=== PATIENT | female | born 1945 | race Caucasian/White ===

== ENCOUNTER 2017-12-01 22:37 | Emergency (ER) | payer OTHER ==
[2017-12-01] MEDS ORDERED: hydrOXYzine HCl 25 MG TAB ONE (23:27)
[2017-12-01] MEDS ORDERED: FAMOTIDINE 20 MG/2 ML VIAL IV ONE (23:27)
[2017-12-01] MEDS ORDERED: DEXAMETHASONE 10 MG/ML VIAL ONE (23:27)
[2017-12-01] MEDS ORDERED: FAMOTIDINE 20 MG TAB ONE (23:28)
[2017-12-02] MEDS ORDERED: LORAZEPAM 1 MG TABLET ONE (00:12)
[2017-12-02] MEDS ORDERED: hydrOXYzine HCl 25 MG TAB ONE (00:13)
[2017-12-02 00:28] LABS: Urine Blood 2+ (NEG); Urine Glucose NEGATIVE (NEG); Urine Protein NEGATIVE (NEG)
--- NOTE | 2017-12-02 01:57 | EDPHYS ---
Physician Documentation [facility] Name: Flori Goldman Age: 72 yrs Sex: Female : 1945 Arrival Date: 12/01/2017 Time: 22:39 Bed 17 Private MD: Leslie Sparks ED Physician Luis Villegas HPI: 12/02 01:59 This 72 yrs old Female presents to ER via Ambulatory with complaints of Rash. snw 01:59 The patient's rash thought to be caused by an unknown cause. The rash can be described snw as erythematous, patchy, urticarial. Onset: The symptoms/episode began/occurred suddenly, yesterday, and became worse and became persistent. Associated signs and symptoms: Pertinent positives: burning sensation. Severity of symptoms: At their worst the symptoms were moderate severe in the emergency department the symptoms are unchanged. Treatment given at home: Benadryl. The patient has not experienced similar symptoms in the past. The patient has been recently seen by a physician: the patient's primary care provider, with different complaint(s), and apparently was diagnosed with UTI, was given a prescription for antibiotics. Pt has been taking Cipro x 5 days (last dose today). Pt broke out in painful (burning/itching) rash yesterday but believed it to be Shingles. Arrives in ED 2nd to pain and severe, unrelenting itching. Historical: - Allergies: 12/01 23:41 PENICILLINS; ea - Immunization history:: Adult Immunizations up to date. - Social history:: Smoking status: Patient/guardian denies using tobacco. - Ebola Screening: : No symptoms or risks identified at this time. ROS: 12/02 00:04 Constitutional: Negative for fever, chills, and weight loss, Eyes: Negative for injury, snw pain, redness, and discharge, ENT: Negative for injury, pain, and discharge, Neck: Negative for injury, pain, and swelling, Cardiovascular: Negative for chest pain, palpitations, and edema, Respiratory: Negative for shortness of breath, cough, wheezing, and pleuritic chest pain, Abdomen/GI: Negative for abdominal pain, nausea, vomiting, diarrhea, and constipation, Back: Negative for injury and pain, : Negative for injury, bleeding, discharge, and swelling, MS/Extremity: Negative for injury and deformity, Neuro: Negative for headache, weakness, numbness, tingling, and seizure. Skin: Positive for rash, pt felt she might have broken out in shingles, just finished cipro for UTI today, pt has erupted in not shingles but hives. Exam: 12/01 23:10 Constitutional: This is a well developed, well nourished patient who is awake, alert, snw and in no acute distress. Head/Face: Normocephalic, atraumatic. Eyes: Pupils equal round and reactive to light, extra-ocular motions intact. Lids and lashes normal. Conjunctiva and sclera are non-icteric and not injected. Cornea within normal limits. Periorbital areas with no swelling, redness, or edema. ENT: Nares patent. No nasal discharge, no septal abnormalities noted. Tympanic membranes are normal and external auditory canals are clear. Oropharynx with no redness, swelling, or masses, exudates, or evidence of obstruction, uvula midline. Mucous membranes moist. Neck: Trachea midline, no thyromegaly or masses palpated, and no cervical lymphadenopathy. Supple, full range of motion without nuchal rigidity, or vertebral point tenderness. No Meningismus. Chest/axilla: Normal chest wall appearance and motion. Nontender with no deformity. No lesions are appreciated. Cardiovascular: Regular rate and rhythm with a normal S1 and S2. No gallops, murmurs, or rubs. Normal PMI, no JVD. No pulse deficits. Respiratory: Lungs have equal breath sounds bilaterally, clear to auscultation and percussion. No rales, rhonchi or wheezes noted. No increased work of breathing, no retractions or nasal flaring. Abdomen/GI: Soft, non-tender, with normal bowel sounds. No distension or tympany. No guarding or rebound. No evidence of tenderness throughout. Back: No spinal tenderness. No costovertebral tenderness. Full range of motion. Female : Normal external genitalia. MS/ Extremity: Pulses equal, no cyanosis. Neurovascular intact. Full, normal range of motion. Neuro: Awake and alert, GCS 15, oriented to person, place, time, and situation. Cranial nerves II-XII grossly intact. Motor strength 5/5 in all extremities. Sensory grossly intact. Cerebellar exam normal. Normal gait. Skin: Appearance: normal except for affected area, rash a moderate rash is noted, urticaria. Vital Signs: 23:10 BP 106 / 69; Pulse 69; Resp 18; Temp 98.7; Pulse Ox 96% on R/A; Weight 90.72 kg; Height ea 5 ft. 6 in. (167.64 cm); Pain 0/10; 12/02 00:19 BP 133 / 67; Pulse 60; Resp 18; Pulse Ox 97% on R/A; ea 01:26 BP 123 / 72; Pulse 60; Resp 18; Pulse Ox 96% on R/A; ea 02:45 BP 131 / 70; Pulse 62; Resp 18; Temp 97.8(O); Pulse Ox 97% on R/A; Pain 0/10; ea 12/01 23:10 Body Mass Index 32.28 (90.72 kg, 167.64 cm) ea MDM: 12/01 23:03 Patient medically screened. snw 12/02 00:04 Data reviewed: vital signs, nurses notes. Data interpreted: Pulse oximetry: on room air snw is 96 %. Interpretation: acceptable. Medication response: atarax, continued hives, continued pruritis. 01:58 Response to treatment: the patient's symptoms have markedly improved after treatment, snw and as a result, I will discharge patient, administer antihistamines, Vistaril, administer steroids, prednisone. 12/01 23:55 Order name: Urine Dipstick--Ancillary (enter results); Complete Time: 00:32 rg2 Administered Medications: 12/01 23:29 Drug: Decadron 8 mg Route: PO; ea 12/02 00:06 Follow up: Response: No adverse reaction ea 12/01 23:29 Drug: Pepcid 20 mg Route: PO; ea 12/02 00:06 Follow up: Response: No adverse reaction ea 12/01 23:30 Drug: Atarax 25 mg Route: PO; ea 12/02 00:06 Follow up: Response: No adverse reaction ea 00:12 Drug: Atarax 25 mg Route: PO; ea 01:00 Follow up: Response: No adverse reaction; Marked relief of symptoms ea 00:12 Drug: Ativan 1 mg Route: PO; ea 01:00 Follow up: Response: No adverse reaction; Marked relief of symptoms ea Disposition: 03:37 Co-signature as Attending Physician, Luis Villegas MD. pkl Disposition: 12/02/17 01:56 Discharged to Home. Impression: Allergy status to drugs, medicaments and biological substances. - Condition is Stable. - Discharge Instructions: Drug Allergy, Hives. - Prescriptions for Vistaril 25 mg Oral capsule - take 1 capsule by ORAL route 3 times per day; 30 capsule. Prednisone 20 mg Oral Tablet - take 2 tablet by ORAL route once daily for 5 days; 10 tablet. - Medication Reconciliation Form, Thank You Letter, Antibiotic Education, Prescription Opioid Use form. - Follow up: Leslie Sparks MD; When: 1 - 2 days; Reason: Recheck today's complaints, Continuance of care, Re-evaluation by your physician. Follow up: Emergency Department; When: As needed; Reason: Worsening of condition. - Notes: No Fluoroquinolones or Penicillins Signatures: Dispatcher [employer] EDMS Luis Villegas MD MD pkl Therrien, Shelly, DIRECTOR MEDICAL WRITING-C DIRECTOR MEDICAL WRITING-Csnw Bridgette James, RN RN ea Corrections: (The following items were deleted from the chart) 02:55 01:56 12/02/2017 01:56 Discharged to Home. Impression: Allergy status to drugs, ea medicaments and biological substances. Condition is Stable. Forms are Medication Reconciliation Form, Thank You Letter, Antibiotic Education, Prescription Opioid Use. Follow up: Leslie Sparks; When: 1 - 2 days; Reason: Recheck today's complaints, Continuance of care, Re-evaluation by your physician. Follow up: Emergency Department; When: As needed; Reason: Worsening of condition. snw
--- NOTE | 2017-12-02 01:57 | ER ---
Nurse's Notes [facility] Name: Flori Goldman Age: 72 yrs Sex: Female : 1945 Arrival Date: 12/01/2017 Time: 22:39 Bed 17 Private MD: Leslie Sparks Diagnosis: Allergy status to drugs, medicaments and biological substances Presentation: 12/01 23:00 Presenting complaint: Patient states: Patient reports she started having a rash all ea over her body, reports she thinks it's shingles. Transition of care: patient was not received from another setting of care. Onset of symptoms was December 01, 2017. Risk Assessment: Do you want to hurt yourself or someone else? Patient reports no desire to harm self or others. Initial Sepsis Screen: Does the patient meet any 2 criteria? No. Patient's initial sepsis screen is negative. Does the patient have a suspected source of infection? No. Patient's initial sepsis screen is negative. Care prior to arrival: None. 23:00 Method Of Arrival: Ambulatory ea 23:00 Acuity: SLADE 3 ea Triage Assessment: 23:00 General: Appears uncomfortable, Behavior is calm, cooperative, appropriate for age. ea Pain: Denies pain. EENT: Reports "I just feel so itchy". Neuro: Level of Consciousness is awake, alert, obeys commands, Oriented to person, place, time, situation. Cardiovascular: Heart tones S1 S2 present Patient's skin is warm and dry. Respiratory: Airway is patent Respiratory effort is even, unlabored, Respiratory pattern is regular, symmetrical, Breath sounds are clear bilaterally. GI: Bowel sounds present X 4 quads. Derm: Rash noted that is urticaria, on buttocks, chest, abdomen, pelvis, right arm, left arm, right leg and left leg. Historical: - Allergies: 23:41 PENICILLINS; ea - Immunization history:: Adult Immunizations up to date. - Social history:: Smoking status: Patient/guardian denies using tobacco. - Ebola Screening: : No symptoms or risks identified at this time. Screenin:42 Abuse screen: Denies threats or abuse. Nutritional screening: No deficits noted. ea Tuberculosis screening: No symptoms or risk factors identified. Fall Risk None identified. Assessment: 12/02 00:12 Reassessment: Patient and/or family updated on plan of care and expected duration. Pain ea level reassessed. Patient is alert, oriented x 3, equal unlabored respirations, skin warm/dry/pink. 01:55 Reassessment: Patient and/or family updated on plan of care and expected duration. Pain ea level reassessed. Patient is alert, oriented x 3, equal unlabored respirations, skin warm/dry/pink. 02:50 Reassessment: Patient and/or family updated on plan of care and expected duration. Pain ea level reassessed. Patient is alert, oriented x 3, equal unlabored respirations, skin warm/dry/pink. Discharge instructions given to patient and , both verbalized the understanding of instruction. Patient states feeling better. Patient states symptoms have improved. Vital Signs: 12/01 23:10 BP 106 / 69; Pulse 69; Resp 18; Temp 98.7; Pulse Ox 96% on R/A; Weight 90.72 kg; Height ea 5 ft. 6 in. (167.64 cm); Pain 0/10; 12/02 00:19 BP 133 / 67; Pulse 60; Resp 18; Pulse Ox 97% on R/A; ea 01:26 BP 123 / 72; Pulse 60; Resp 18; Pulse Ox 96% on R/A; ea 02:45 BP 131 / 70; Pulse 62; Resp 18; Temp 97.8(O); Pulse Ox 97% on R/A; Pain 0/10; ea 12/01 23:10 Body Mass Index 32.28 (90.72 kg, 167.64 cm) ea ED Course: 12/01 22:39 Patient arrived in ED. am2 22:40 Leslie Sparks MD is Private Physician. am2 22:49 [facility] snw 22:49 Luis Villegas MD is Attending Physician. snw 23:00 Arm band placed on right wrist. Patient placed in an exam room, on a stretcher, on ea pulse oximetry. 23:19 Bridgette James, ARASELI is Primary Nurse. ea 23:20 Patient has correct armband on for positive identification. Bed in low position. Call ea light in reach. 23:31 Triage completed. ea 12/02 01:55 Leslie Sparks MD is Referral Physician. snw 02:50 No provider procedures requiring assistance completed. Patient did not have IV access ea during this emergency room visit. Administered Medications: 12/01 23:29 Drug: Decadron 8 mg Route: PO; ea 12/02 00:06 Follow up: Response: No adverse reaction ea 12/01 23:29 Drug: Pepcid 20 mg Route: PO; ea 12/02 00:06 Follow up: Response: No adverse reaction ea 12/01 23:30 Drug: Atarax 25 mg Route: PO; ea 12/02 00:06 Follow up: Response: No adverse reaction ea 00:12 Drug: Atarax 25 mg Route: PO; ea 01:00 Follow up: Response: No adverse reaction; Marked relief of symptoms ea 00:12 Drug: Ativan 1 mg Route: PO; ea 01:00 Follow up: Response: No adverse reaction; Marked relief of symptoms ea Outcome: 01:56 Discharge ordered by . komal 02:50 Discharged to home via wheelchair, with significant other. ea 02:50 Condition: improved 02:50 Discharge instructions given to patient, Instructed on discharge instructions, follow up and referral plans. medication usage, Demonstrated understanding of instructions, follow-up care, medications, Prescriptions given X 2. 02:55 Patient left the ED. ea Signatures: Darby Hopper, DOUGHNUT ICER-C DOUGHNUT ICER-Csnw Lisy Lopez Elena, RN RN hsane
== END 2017-12-02 02:55 | disposition home or self-care (01) ==
LOC: ER 22:37
DX: L27.0 Generalized skin eruption due to drugs and medicaments taken internally (principal); T50.905A Adverse effect of unspecified drugs, medicaments and biological substances, initial encounter; Y92.019 Unspecified place in single-family (private) house as the place of occurrence of the external cause; Z88.0 Allergy status to penicillin
CPT/HCPCS: 81003; J1100; 99283

== ENCOUNTER 2020-06-05 12:22 | Emergency (ER) | payer OTHER ==
--- OUTSIDE RECORDS SUMMARY | 2020-06-05 12:24 | XMS REPORT | Continuity of Care Document ---
:1945 Author Organization [facility] t Address [address] [place] [address] Care Team Providers Name Role Phone DR CYNDIE Attending Clinician Unavailable Doctor Unassigned, Name Attending Clinician Unavailable Damián RIGGINS Attending Clinician DR CYNDIE Admitting Clinician Unavailable Payers Payer Name Policy Type Policy Number Effective Date Expiration Date S ource Problems This patient has no known problems. Allergies, Adverse Reactions, Alerts This patient has no known allergies or adverse reactions. Medications This patient has no known medications. Procedures This patient has no known procedures. Encounters Start End Encounter Admission Attending Care Care Encounter Source Date/Time Date/Time Type Type Clinicians Facility Department ID 2019-12-28 2020-01-12 Inpatient E JOSE [facility] [id number] 22:44:00 17:00:00 [facility] 2019-12-28 2019-12-28 Orders Doctor RINALDI [id number] 00:00:00 00:00:00 Only UnassignedADALBERTO [id number] [facility] [id number] [id number] [id number] 2019-12-18 2019-12-18 Orders Doctor RINALDI [id number] 00:00:00 00:00:00 Only Unassigned, ADALBERTO [id number] [facility] [id number] [id number] [id number] 2019-12-09 2019-12-09 Orders Doctor NIMCO 1.2.840.114 [id number] 00:00:00 00:00:00 Only Unassigned, ADALBERTO [id number] [facility] 4.2.7.2.686 [id number] [id number] 2019-11-24 2019-11-24 Orders Doctor NIMCO [id number] 00:00:00 00:00:00 Only Unassigned, ADALBERTO [id number] [facility] 4.2.7.2.686 [id number] [id number] 2019-10-14 2019-10-14 Orders Doctor NIMCO [place]2.840.114 [id number] 00:00:00 00:00:00 Only Unassigned, ADALBERTO [id number] [facility] [id number] [id number] [id number] 2019-09-29 2019-09-29 Orders Doctor RINALDI 1.2.840.114 [id number] 00:00:00 00:00:00 Only Unassigned, ADALBERTO [id number] [facility] [id number] [id number] [id number] 2019-08-17 2019-08-17 Orders Doctor RINALDI 1.2.840.114 [id number] 00:00:00 00:00:00 Only Unassigned, ADALBERTO 350.1.13.10 [facility] 4.2.7.2.686 [id number] [id number] 2019-07-23 2019-07-23 Orders Doctor NIMCO [place].2.840.114 [id number] 00:00:00 00:00:00 Only Unassigned, ADALBERTO 350.1.13.10 [facility] 4.2.7.2.686 [id number] [id number] 2019-06-05 2019-06-30 [facility] WILLIAM Steel [id number] 08:48:52 08:40:20 Visit [facility] [id number] CARE 4.2.7.2.686 [place] [id number] Results Test Description Test Time Test Comments Results Result Comments Source SARS-CoV (RAPID ANTIGEN) 2020-01-11 17:36:00 Test Item Value Reference Range Interpretation Comme nts SARS-CoV (ANTIGEN) (test code = NEGATIVE NEGATIVE COVAG) COVID AG (test code = COVAGC) This test has been marketed under the FDA Emergency Use Authorization (EUA) to meet challenges of the COVID-19 pandemic. The validation standards normally enforced by the FDA and the [employer] of the [employer] (CAP) are more stringent than those required for this test. Therefore, the result should be interpreted with caution and close attention to other clinical and epidemiological data URINALYSIS WITH [id number] 19:20:00 Test Item Value Reference Range Interpretation Comments COLOR (test code = COLU) YELLOW YELLOW CLARITY (test code = CLA) CLEAR CLEAR GLUCOSE UR (test code = UA GLUCOSE) NEGATIVE NEGATIVE BILI UR (test code = BILE) NEGATIVE NEGATIVE KETONES UR (test code = HELIO) NEGATIVE NEGATIVE SP GRAVITY (test code = SPGR) 1.029 1.005-1.030 PH UR (test code = PH) 6.0 4.5-8.0 PROTEIN UR (test code = PU) NEGATIVE NEGATIVE UROBIL UR (test code = UROQ) 0.2 EU/dL 0.2-1.0 NITRITE UR (test code = NITRITE) NEGATIVE NEGATIVE BLOOD UR (test code = UA BLOOD) NEGATIVE NEGATIVE LEUK ES UR (test code = LEUK) TRACE NEGATIVE A WBC UR (test code = UWBC) 6 /HPF 0-5 H RBC UR (test code = URBC) 1 /HPF 0-2 EPITH UR (test code = UEPC) FEW /LPF FEW BACTERIA UR (test code = UBACT) NONE /HPF NONE CAST UR (test code = CAST) /LPF NONE CRYSTAL UR (test code = CRYU) / LPF NONE MUCUS UR (test code = MUC) / HPF NONE AMORPH UR (test code = BRAYDON) / HPF NONE TRICH UR (test code = UTRICH) /HPF NONE YEAST UR (test code = UY) /HPF NONE SPERM UR (test code = USPERM) /HPF NONE URINE [id number] 11:31:00 Test Item Value Reference Range Interpretation Comments Isolate 1 (test code = ISO1) Escherichia coli A ampicillin (test code = am) ug/mL R piperacillin/tazobactam ug/mL S (test code = tzp) cefazolin (test code = cz) ug/mL S ceftazidime (test code = ug/mL S arpan) ceftriaxone1 (test code = ug/mL S ctr) cefepime (test code = fep) ug/mL S aztreonam (test code = azm) ug/mL S ertapenem (test code = etp) ug/mL S meropenem (test code = mem) ug/mL S gentamicin (test code = gm) ug/mL S tobramycin (test code = tob) ug/mL S levofloxacin (test code = ug/mL S lev) nitrofurantoin (test code = ug/mL S ftn) trimethoprim/sulfamethoxazol ug/mL R e (test code = sxt) [id number] 01:38:00 Test Item Value Reference Range Interpretation Comments Hb A1C % (test code 5.4 % 3.8-6.4 = HBA) A1C % (test code = HbA1c (% ) A1C) Reference Range Normal <5.7 Prediabetes 5.7-6.4 Diabetic >=6.5 B12 [id number] 00:50:00 Test Item Value Reference Range Interpretation Comments VIT B12 (test code = A60) 750.0 pg/mL 180.0-914.0 [id number] 00:50:00 Test Item Value Reference Range Interpretation Comments FOLATE (test code = A75) 14.2 ng/mL 3.1-17.5 [id number] 00:22:00 Test Item Value Reference Range Interpretation Comments MAGNESIUM (test code = 48A) 2.2 mg/dL 1.8-2.4 THYROID PANEL/SCREEN (TSH)2019-12-28 22:29:00 Test Item Value Reference Range Interpretation Comments TSH (test code = A57) 0.514 uIU/mL 0.358-3.740 LIPID [id number] 22:25:00 Test Item Value Reference Range Interpretation Comments CHOLESTROL (test code = 44A) 214 mg/dL 140-200 H TRIGLYCERI (test code = 42B) 97 mg/dL <=149 HDL (test code = 83D) 63.0 mg/dL 40.0-60.0 H LDL (test code = 34B) 129 mg/dL <=99 H CHL/HDL (test code = CHR) 3.4 0.0-3.4 [id number] 22:25:00 Test Item Value Reference Range Interpretation Comments PREALBUMIN (test code = 08E) 24 mg/dL 18-38 [id number] 22:23:00 Test Item Value Reference Range Interpretation Comments FOLATE (test code = A75) 14.0 ng/mL 3.1-17.5 [id number] 22:06:00 Test Item Value Reference Range Interpretation Comments MAGNESIUM (test code = 48A) 2.3 mg/dL 1.8-2.4 SARS-CoV (RAPID ANTIGEN)2019-12-28 21:08:00 Test Item Value Reference Range Interpretation Comments SARS-CoV (ANTIGEN) NEGATIVE NEGATIVE (test code = COVAG) COVID AG (test This test has been code = COVAGC) marketed under the FDA Emergency Use Authorization (EUA) to meet challenges of the COVID-19 pandemic. The validation standards normally enforced by the FDA and the [employer] of the [place] [employer] (CAP) are more stringent than those required for this test. Therefore, the result should be interpreted with caution and close attention to other clinical and epidemiological data [id number] 21:06:00 Test Item Value Reference Range Interpretation Comments FERRITIN (test code = A19) 55.8 ng/mL 8.0-252.0 URINALYSIS WITH [id number] 21:01:00 Test Item Value Reference Range Interpretation Comments COLOR (test code = COLU) YELLOW YELLOW CLARITY (test code = CLA) CLOUDY CLEAR A GLUCOSE UR (test code = UA GLUCOSE) NEGATIVE NEGATIVE BILI UR (test code = BILE) NEGATIVE NEGATIVE KETONES UR (test code = HELIO) NEGATIVE NEGATIVE SP GRAVITY (test code = SPGR) 1.013 1.005-1.030 PH UR (test code = PH) 7.0 4.5-8.0 PROTEIN UR (test code = PU) NEGATIVE NEGATIVE UROBIL UR (test code = UROQ) 1.0 EU/dL 0.2-1.0 NITRITE UR (test code = NITRITE) POSITIVE NEGATIVE A BLOOD UR (test code = UA BLOOD) 1+ NEGATIVE A LEUK ES UR (test code = LEUK) 3+ NEGATIVE A WBC UR (test code = UWBC) 40 /HPF 0-5 H RBC UR (test code = URBC) 6 /HPF 0-2 H EPITH UR (test code = UEPC) FEW /LPF FEW BACTERIA UR (test code = UBACT) MANY /HPF NONE A CAST UR (test code = CAST) /LPF NONE CRYSTAL UR (test code = CRYU) / LPF NONE MUCUS UR (test code = MUC) / HPF NONE AMORPH UR (test code = BRAYDON) / HPF NONE TRICH UR (test code = UTRICH) /HPF NONE YEAST UR (test code = UY) /HPF NONE SPERM UR (test code = USPERM) /HPF NONE C-REACTIVE PROTEIN [id number] 20:56:00 Test Item Value Reference Range Interpretation Comments CRP QUANT (test code <2.9 mg/L 0.0-2.9 = CRPQ) Method Change (test Please note the code = METHOD) change in Method and the reference range AMMONIA [id number] 20:51:00 Test Item Value Reference Range Interpretation Comments AMMONIA (test code = 54A) 23 umol/L 11-32 LDH-LACTIC [id number] 20:50:00 Test Item Value Reference Range Interpretation Comments LDH (test code = 33A) 190 IU/L 84-246 CARDIAC [id number] 20:49:00 Test Item Value Reference Range Interpretation Comments TROPONIN I (test code = A84) <0.015 ng/mL 0.000-0.045 COMPREHENSIVE METABOLIC [id number] 20:48:00 Test Item Value Reference Range Interpretation Comments GLUCOSE (test code = 102 mg/dL 75-100 H 06D) SODIUM (test code = 137 mmol/L 136-145 01A) POTASSIUM (test code = 3.7 mmol/L 3.6-5.1 01B) CHLORIDE (test code = 105 mmol/L 98-107 04A) CO2 (test code = 02A) 26 mmol/L 22-32 ANION GAP (test code = 9.7 mmol/L ANG) BUN (test code = 05D) 15 mg/dL 7-18 CREATININE (test code 0.8 mg/dL 0.4-1.1 = 03E) GFR (test code = GFR) 74 mL/min/1.73m\S\2 >=90 L GFR 85 mL/min/1.73m\S\2 >=90 L (test code = GFRAA) EGFR (test code = eGFR BY CKD-EPI EGFR) CALCULATION IS NOT RECOMMENDED FOR PATIENTS UNDER 18 YEARS OF AGE. BUN/CREA (test code = 19 12-20 BCR) CALCIUM (test code = 9.2 mg/dL 8.3-9.5 09D) BILI TOTAL (test code 0.6 mg/dL 0.2-1.0 = 11A) PROTEIN (test code = 7.5 g/dL 6.4-8.2 07D) ALBUMIN (test code = 4.5 g/dL 3.5-4.8 08D) GLOBULIN (test code = 3.0 g/dL 1.5-3.8 GLB) ALB/GLOB (test code = 1.5 1.0-2.6 AGRR) ALK PHOS (test code = 66 IU/L 42-121 35A) AST (test code = 30A) 14 IU/L <=42 ALT (test code = 31A) 16 IU/L <=78 [id number] 20:48:00 Test Item Value Reference Range Interpretation Comments ACETAMINPH (test code = 94M) <2.0 ug/mL 10.0-30.0 L ALCOHOL BLOOD (ETOH)2019-12-28 20:45:00 Test Item Value Reference Range Interpretation Comments ETOH (test code = HALC) ETHANOL The result is to be used only for medical purposes ALCOHOL (test code = <10 mg/dL <=10 56A) PRO TIME AND [id number] 20:44:00 Test Item Value Reference Range Interpretation Comments PT (test code = 15.1 s 9.8-13.6 H TT) INR (test code = 1.3 INR) INRH (test code = SUGGESTED INRH) THERAPEUTIC RANGE FOR INR: 2.5 - 3.5 For Patients with Prosthetic Valves or Patients with recurrent Thromboembolic Events 2.0 - 3.0 For Most Other Applications PTT (test code = 34.9 s 20.2-38.0 PTT) PTTH (test code = To monitor the PTTH) effectiveness of heparin, we offer the Anti-Xa (Heparin Assay). It can be used for either unfractionated or LMW Heparin. Order Code is ANTI-XA [id number] 20:43:00 Test Item Value Reference Range Interpretation Comments SALICYLATE (test code = 94B) <1.7 mg/dL 2.8-20.0 L DRUGS OF [id number] 20:41:00 Test Item Value Reference Range Interpretation Comments DRUG SCRN (test code URINE DRUG SCREEN = HDOA) This is an unconfirmed screening result and should not be used for non-medical purposes CANNABINOD (test code Negative NEGATIVE = 88C) AMPHETAMINE (test Negative NEGATIVE code = 84A) BENZODIAZP (test code Negative NEGATIVE = 86A) BARBITURAT (test code Negative NEGATIVE = 85A) OPIATES (test code = Negative NEGATIVE 92B) COCAINE (test code = Negative NEGATIVE 87A) PHENCYCLID (test code Negative NEGATIVE = 66A) METHADONE (test code Negative NEGATIVE = 64A) DOAH (test code = DOAH.) *URINE DRUG SCREEN Cut-off values are as follows: Cannabinoids 50 ng/mL Cocaine 300 ng/mL Amphetamines 1000 ng/mL Phencyclidine 25 ng/mL Benzodiazepines 200 ng.mL Methadone 300 ng/mL Barbiturates 200 ng/mL Opiates 2000 ng/mL CBC (INCLUDES AUTOMATED DIFFERENTIAL)2019-12-28 20:34:00 Test Item Value Reference Range Interpretation Comments WBC (test code = WBC) 10.4 10\S\3/uL 4.5-11.0 RBC (test code = RBC) 4.92 10\S\6/uL 3.80-5.80 HGB (test code = HBG) 13.9 g/dL 12.0-15.5 HCT (test code = HCT) 42.4 % 35.0-44.0 MCV (test code = MCV) 86.2 fL 81.0-99.0 MCH (test code = MCH) 28.3 pg 27.0-31.0 MCHC (test code = MCHC) 32.8 g/dL 32.0-36.0 RDW (test code = RDW) 13.9 % 11.5-14.5 PLT (test code = PLT) 462 10\S\3/uL 130-400 H MPV (test code = MPV) 9.0 fL 9.4-12.4 L NEUTROP # (test code = NE#) 6.0 10\S\3/uL 1.6-8.0 LYMPH # (test code = LY#) 2.8 10\S\3/uL 1.1-3.5 MONOCYTE # (test code = MO#) 0.8 10\S\3/uL 0.0-1.1 EOSINOPH # (test code = EO#) 0.6 10\S\3/uL 0.0-0.7 BASOPHIL # (test code = BA#) 0.1 10\S\3/uL 0.0-0.3 IG # (test code = IG#) 0.03 10\S\3/uL 0.00-0.06 NRBC # (test code = NRBC#) 0.00 10\S\3/uL 0.00-0.01 NEUTROPH % (test code = NE%) 57.7 % 35.0-73.0 LYMPH % (test code = LY%) 27.2 % 20.0-55.0 MONO % (test code = MO%) 8.1 % 2.5-10.0 EOSINOPH % (test code = EO%) 5.7 % 0.0-5.0 H BASOPHIL % (test code = BA%) 1.0 % 0.0-2.0 IG % (test code = IG%) 0.3 % 0.0-0.8 NRBC% (test code = NRBC%) 0.0 % 0.0-0.2 MANDIFF (test code = MDIFF) NO
[2020-06-05] MEDS ORDERED: LORazepam 2 MG/ML VIAL ONE ×2 (13:07→14:32)
[2020-06-05 13:10] LABS: Urine Blood NEGATIVE (NEG); Urine Glucose NEGATIVE (NEG); Urine Protein TRACE (NEG); Urine Specific Gravity 1.025 (1.005-1.030)
[2020-06-05 13:10] LABS: Absolute Lymphocytes (CBC) 1.8 K/uL (0.7-4.9); Hematocrit 38.5 % (36.0-45.0); Lymphocytes % 20.7 % (15.3-44.8); MPV 7.9 fL (7.6-11.3); RBC Red Blood Cell Count 4.57 M/uL (3.86-4.86)
[2020-06-05 13:22] LABS: BUN Blood Urea Nitrogen 17 mg/dL (7-18); Bicarbonate 29 mmol/L (21-32); Glucose Level 110 mg/dL (74-106); Potassium 3.1 mmol/L (3.5-5.1); Sodium Level 143 mmol/L (136-145)
--- NOTE | 2020-06-05 13:42 | RAD REPORT ---
EXAM DESCRIPTION: CT - Head Brain Wo Cont - 06/05/2020 1:37 pm CLINICAL HISTORY: facial/head trauma, altered Trauma, head injury COMPARISON: No comparisons TECHNIQUE: All CT scans are performed using dose optimization technique as appropriate and may inclu de automated exposure control or mA/KV adjustment according to patient size. FINDINGS: No intracranial hemorrhage, hydrocephalus or extra-axial fluid collection.Moderate general ized brain atrophy is present with moderate periventricular and deep white matter chronic microvascul ar ischemic changes.No areas of brain edema or evidence of midline shift. The paranasal sinuses and mastoids are clear. The calvarium is intact. Small right frontal scalp jaret ebony. IMPRESSION: No acute intracranial abnormality.
[2020-06-05 13:49] LABS: Urine Bacteria <20 /HPF (<20); Urine Mucus LIGHT /HPF (NONE SEEN); Urine RBC NONE SEEN /HPF (NONE SEEN)
[2020-06-05 13:50] LABS: Calcium Oxalate Crystals- Ur FEW (NONE SEEN); Urine Amorphous Sediment 3+ /HPF (NONE SEEN)
--- NOTE | 2020-06-05 14:09 | ER ---
Nurse's Notes [facility] Name: Flori Goldman Age: 75 yrs Sex: Female : 1945 Arrival Date: 06/05/2020 Time: 12:28 Bed 15 Private MD: Diagnosis: Dementia in other diseases classified elsewhere;Restlessness and agitation Presentation: 06/05 12:36 Chief complaint: EMS states: altered mental status x unknown days. falls x unknown zb days. patient aox1. high anxiety. Coronavirus screen: At this time, the client does not indicate any symptoms associated with coronavirus-19. Ebola Screen: No symptoms or risks identified at this time. Initial Sepsis Screen: Does the patient meet any 2 criteria? Altered Mental Status. No. Patient's initial sepsis screen is negative. Does the patient have a suspected source of infection? No. Patient's initial sepsis screen is negative. Risk Assessment: Do you want to hurt yourself or someone else? Patient reports no desire to harm self or others. Onset of symptoms was June 04, 2020. 12:36 Acuity: SLADE 3 zb 12:36 Method Of Arrival: EMS: [facility] zb Triage Assessment: 12:57 General: Appears uncomfortable, slender, Behavior is agitated, anxious. Pain: Complains zb of pain in patient states generalized. Unable to use pain scale. Patient is disoriented. EENT: No signs and/or symptoms were reported regarding the EENT system. Neuro: Level of Consciousness is awake, alert, Oriented to person. Cardiovascular: Capillary refill < 3 seconds Patient's skin is warm and dry. Respiratory: Airway is patent Respiratory effort is even, unlabored, Respiratory pattern is regular, symmetrical. GI: Abdomen is flat, non-distended. : Urine is cloudy. Derm: Skin is fragile, is thin, Skin is dry, Skin is normal, Skin temperature is warm Bruising that is green, yellow, on right eye. Musculoskeletal: Range of motion: intact in all extremities. Historical: - Allergies: 12:57 PENICILLINS; zb 12:57 Cipro; zb 12:57 fluoroquinolones; zb - Home Meds: 12:57 lisinopril 10 mg Oral tab 1 tab once daily [Active]; lamotrigine 200 mg oral tab 1 tab zb once daily [Active]; duloxetine 60 mg oral cpDR 1 cap once daily [Active]; donepezil 10 mg oral tab 1 tab once daily [Active]; metformin 500 mg Oral TG24 2 tabs 2 times per day [Active]; mirtazapine 30 mg Oral tab 1 tab once daily [Active]; omeprazole 20 mg Oral TbEC [Active]; tramadol 50 mg Oral tab 1 tab 12 hours [Active]; - PMHx: 12:57 Dementia; Diabetes - NIDDM; Alzheimers; GERD; Hypertension; zb - PSHx: 12:57 Unable to obtain; zb - Immunization history:: Adult Immunizations up to date. - Social history:: Smoking status: unknown. - Family history:: not pertinent. - Hospitalizations: : No recent hospitalization is reported. Screenin:33 Abuse screen: Denies threats or abuse. Nutritional screening: On. Tuberculosis tw2 screening: No symptoms or risk factors identified. Fall Risk Secondary diagnosis (15 points) dementia, impaired mobility. Assessment: 12:28 General: Appears slender, Behavior is anxious, fussy, restless. Neuro: Level of tw2 Consciousness is awake, alert, Oriented to person. Cardiovascular: Patient's skin is warm and dry. Respiratory: Airway is patent Respiratory effort is even, unlabored, Respiratory pattern is regular, symmetrical. GI: No signs and/or symptoms were reported involving the gastrointestinal system. Abdomen is flat. : No signs and/or symptoms were reported regarding the genitourinary system. EENT: No signs and/or symptoms were reported regarding the EENT system. Derm: No signs and/or symptoms reported regarding the dermatologic system. Musculoskeletal: Range of motion: intact in all extremities. 13:04 Reassessment: pt agitated and has legs straight up in the air, pt pulling at covers and tw2 cords, grabbing bedrails, provider notified, medicated as ordered. 13:30 Reassessment: Patient appears in no apparent distress at this time. Patient and/or tw2 family updated on plan of care and expected duration. Pain level reassessed. 14:20 Reassessment: pt agitated and attempted to pull at monitoring cords and move to the end tw2 of the bed at this time, provider notified. 14:30 Reassessment: Patient appears in no apparent distress at this time. Patient and/or tw2 family updated on plan of care and expected duration. Pain level reassessed. 15:18 Reassessment: spoke with Caron at [facility] to let her know information has been sent tw2 over an hour ago, she states her DON has not informed her that the pt is cleared to return to the facility, spoke to the DON for [facility], she states she is at the store and has not had time to look over the clinical paperwork and as soon as she can she will arrange transportation back to their facility. 16:40 Reassessment: Patient appears in no apparent distress at this time. Patient and/or tw2 family updated on plan of care and expected duration. Pain level reassessed. pt has urinated in brief, soiled linens, pt cleaned, changed and new linens placed on bed at this time. 17:40 Reassessment: Patient appears in no apparent distress at this time. Patient and/or tw2 family updated on plan of care and expected duration. Pain level reassessed. 18:18 Reassessment: Spoke with Gerri at [facility], [facility] en route, ETA 30 iw minutes from now. 18:41 Reassessment: Patient appears in no apparent distress at this time. Patient and/or tw2 family updated on plan of care and expected duration. Pain level reassessed. Vital Signs: 12:36 BP 136 / 96; Pulse 97; Resp 16; Temp 98.2; Pulse Ox 100% on R/A; Weight 58.97 kg; zb Height 5 ft. 5 in. (167 cm); Pain 0/10; 15:23 BP 128 / 89; Pulse 82; Resp 17; Pulse Ox 99% on R/A; tw2 16:30 BP 132 / 88; Pulse 84; Resp 17; Pulse Ox 99% on R/A; tw2 17:30 BP 129 / 82; Pulse 84; Resp 19; Pulse Ox 99% on R/A; tw2 18:00 BP 149 / 94; Pulse 67; Resp 17; Pulse Ox 99% on R/A; tw2 12:36 Body Mass Index 21.14 (58.97 kg, 167 cm) zb ED Course: 12:28 Patient arrived in ED. rn 12:28 Stevan Doll MD is Attending Physician. rn 12:28 Bed in low position. Call light in reach. Side rails up X2. Pulse ox on. NIBP on. Warm tw2 blanket given. 12:30 Lupe Barrett RN is Primary Nurse. tw2 12:42 Triage completed. zb 12:55 Straight cath inserted, using sterile technique, 18 Fr. Specimen obtained. Returned tw2 foul smelling urine, ARASELI Martínez and Carmita Rubi served as women's swim coach and help, pt not wanting to lay back. Inserted saline lock: 22 gauge in right antecubital area, using aseptic technique. Blood collected. 12:57 Radiology exam delayed due to pt ams and unable to lay down or still at this time. mw3 nurse and provider notified. 13:04 Urine Culture Sent. tw2 13:11 Arm band placed on. tw2 13:36 CT Head Brain wo Cont In Process Unspecified. EDMS 14:22 Awaiting transportation. tw2 15:16 No provider procedures requiring assistance completed. tw2 16:00 Diet: Patient given water. 5 16:46 Awaiting transportation. tw2 18:00 Diet: ENSURE. 5 18:43 IV discontinued, intact, bleeding controlled, No redness/swelling at site. Pressure tw2 dressing applied. Administered Medications: 12:55 Drug: Ativan 0.5 mg Route: IVP; Site: right forearm; tw2 13:05 Follow up: Response: No adverse reaction; No change in condition tw2 13:04 Drug: Ativan 0.5 mg Route: IVP; Site: right forearm; tw2 13:15 Follow up: Response: No adverse reaction; Marked relief of symptoms; Anxiety decreased tw2 14:20 Drug: Ativan 0.5 mg Route: IVP; Site: right forearm; zb 15:22 Follow up: Response: No adverse reaction; Marked relief of symptoms; Anxiety decreased tw2 Outcome: 14:08 Discharge ordered by . rn 18:[address] tw2 18:43 Condition: stable 18:43 Discharge instructions given to patient, Instructed on discharge instructions, follow up and referral plans. Demonstrated understanding of instructions, follow-up care. 18:44 Patient left the ED. tw2 Signatures: Dispatcher [employer] Taylor Seo RN RN Stevan Doll MD MD rn Wise, Tara, RN RN 2 Sofya Zayas [facility] Maria Teresa Adler 3 Zuleima Gutierrez, RN RN zb Corrections: (The following items were deleted from the chart) 18:00 16:00 Diet: ENSURE. mh5 mh5
--- NOTE | 2020-06-05 14:09 | EDPHYS ---
Physician Documentation [facility] Name: Flori Goldman Age: 75 yrs Sex: Female : 1945 Arrival Date: 06/05/2020 Time: 12:28 Bed 15 Private MD: ED Physician Stevan Doll HPI: 06/05 12:42 This 75 yrs old Female presents to ER via Unassigned with complaints of rn agitation and restlessness. 12:42 The patient presents with agitation. Onset: The symptoms/episode began/occurred at an rn unknown time. Possible causes: unknown. Current symptoms: In the emergency department the patient's symptoms are unchanged from the initial presentation. The patient has experienced similar episodes in the past. The patient has not recently seen a physician. Per residential, has severe dementia, in locked unit, called 911 for increased agitation and not doing what she is told, EMS reports had to search for patient as nursing lost her. Patient denies any problems, but very restless and requires constant redirection. . Historical: - Allergies: 12:57 PENICILLINS; zb 12:57 Cipro; zb 12:57 fluoroquinolones; zb - Home Meds: 12:57 lisinopril 10 mg Oral tab 1 tab once daily [Active]; lamotrigine 200 mg oral tab 1 tab zb once daily [Active]; duloxetine 60 mg oral cpDR 1 cap once daily [Active]; donepezil 10 mg oral tab 1 tab once daily [Active]; metformin 500 mg Oral TG24 2 tabs 2 times per day [Active]; mirtazapine 30 mg Oral tab 1 tab once daily [Active]; omeprazole 20 mg Oral TbEC [Active]; tramadol 50 mg Oral tab 1 tab 12 hours [Active]; - PMHx: 12:57 Dementia; Diabetes - NIDDM; Alzheimers; GERD; Hypertension; zb - PSHx: 12:57 Unable to obtain; zb - Immunization history:: Adult Immunizations up to date. - Social history:: Smoking status: unknown. - Family history:: not pertinent. - Hospitalizations: : No recent hospitalization is reported. ROS: 12:42 Constitutional: Negative for fever, chills, and weight loss, Eyes: Negative for injury, rn pain, redness, and discharge, Neck: Negative for injury, pain, and swelling, Cardiovascular: Negative for chest pain, palpitations, and edema, Respiratory: Negative for shortness of breath, cough, wheezing, and pleuritic chest pain, Abdomen/GI: Negative for abdominal pain, nausea, vomiting, diarrhea, and constipation, Back: Negative for injury and pain, : Negative for injury, bleeding, discharge, and swelling, MS/Extremity: Negative for injury and deformity, Skin: Negative for injury, rash, and discoloration, Neuro: Negative for headache, weakness, numbness, tingling, and seizure. Exam: 12:42 Constitutional: This is a well developed, well nourished patient who is awake, alert, rn and in no acute distress. Seems agitated and restless Head/Face: Normocephalic, + yellow ecchymosis to right quaker and periorbital region, + abrasion left occiput Eyes: Pupils equal round and reactive to light, extra-ocular motions intact. Cardiovascular: Regular rate and rhythm. No pulse deficits. Respiratory: No increased work of breathing, no retractions or nasal flaring. Abdomen/GI: soft, non-tender Skin: Warm, dry MS/ Extremity: Pulses equal, no cyanosis. Neuro: Awake and alert, GCS 15, oriented to person, place, and situation. Cranial nerves II-XII grossly intact. Motor strength 5/5 in all extremities. Sensory grossly intact. Cerebellar exam normal. Vital Signs: 12:36 BP 136 / 96; Pulse 97; Resp 16; Temp 98.2; Pulse Ox 100% on R/A; Weight 58.97 kg; zb Height 5 ft. 5 in. (167 cm); Pain 0/10; 15:23 BP 128 / 89; Pulse 82; Resp 17; Pulse Ox 99% on R/A; tw2 16:30 BP 132 / 88; Pulse 84; Resp 17; Pulse Ox 99% on R/A; tw2 17:30 BP 129 / 82; Pulse 84; Resp 19; Pulse Ox 99% on R/A; tw2 18:00 BP 149 / 94; Pulse 67; Resp 17; Pulse Ox 99% on R/A; tw2 12:36 Body Mass Index 21.14 (58.97 kg, 167 cm) zb MDM: 12:28 Patient medically screened. rn 14:06 Differential Diagnosis: electrolyte abnormality, hypoglycemia, UTI, volume depletion. rn Data reviewed: vital signs, nurses notes, lab test result(s), radiologic studies, CT scan, and as a result, I will discharge patient. Counseling: I had a detailed discussion with the patient and/or guardian regarding: the historical points, exam findings, and any diagnostic results supporting the discharge/admit diagnosis, lab results, radiology results, the need for outpatient follow up, to return to the emergency department if symptoms worsen or persist or if there are any questions or concerns that arise at home. Response to treatment: the patient's symptoms have mildly improved after treatment, and as a result, I will discharge patient. Special discussion: I discussed with the patient/guardian in detail that at this point there is no indication for admission to the hospital. It is understood, however, that if the symptoms persist or worsen the patient needs to return immediately for re-evaluation. ED course: No acute findings to medically explain agitation. Neg UA. Neg CT head, normal bloodwork. Much more calm after ativan. Will dc back to residential as likely worsening dementia. . 06/05 12:29 Order name: CBC with Diff rn 06/05 12:29 Order name: Basic Metabolic Panel rn 06/05 12:29 Order name: Urine Culture rn 06/05 12:29 Order name: Urine Microscopic Only; Complete Time: 14:06 rn 06/05 12:29 Order name: Procalcitonin; Complete Time: 13:45 rn 06/05 12:30 Order name: CBC with Automated Diff; Complete Time: 13:31 EDIN 06/05 12:29 Order name: IV Start; Complete Time: 12:55 rn 06/05 12:29 Order name: CT Head Brain wo Cont; Complete Time: 13:45 rn 06/05 12:30 Order name: Basic Metabolic Panel; Complete Time: 13:31 EDMS 06/05 12:30 Order name: Urine Culture EDIN 06/05 13:05 Order name: Urine Dipstick--Ancillary (enter results); Complete Time: 13:31 em1 06/05 12:29 Order name: Urine Dipstick-Ancillary (obtain specimen); Complete Time: 13:03 rn 06/05 13:05 Order name: Straight Cath - Urine; Complete Time: 13:05 tw2 Administered Medications: 12:55 Drug: Ativan 0.5 mg Route: IVP; Site: right forearm; tw2 13:05 Follow up: Response: No adverse reaction; No change in condition tw2 13:04 Drug: Ativan 0.5 mg Route: IVP; Site: right forearm; tw2 13:15 Follow up: Response: No adverse reaction; Marked relief of symptoms; Anxiety decreased tw2 14:20 Drug: Ativan 0.5 mg Route: IVP; Site: right forearm; zb 15:22 Follow up: Response: No adverse reaction; Marked relief of symptoms; Anxiety decreased tw2 Disposition: 06/05/20 14:08 Discharged to Home. Impression: Dementia in other diseases classified elsewhere, Restlessness and agitation. - Condition is Stable. - Discharge Instructions: Dementia. - Medication Reconciliation Form, Thank You Letter, Antibiotic Education, Prescription Opioid Use form. - Follow up: Private Physician; When: As needed; Reason: Recheck today's complaints, Re-evaluation by your physician. - Problem is an ongoing problem. - Symptoms have improved. Signatures: Dispatcher [employer] EDMS Stevan Doll MD MD rn Wise, Tara, RN RN tw2 Zuleima Gutierrez RN RN z Corrections: (The following items were deleted from the chart) 18:44 14:08 06/05/2020 14:08 Discharged to Home. Impression: Dementia in other diseases tw2 classified elsewhere; Restlessness and agitation. Condition is Stable. Forms are Medication Reconciliation Form, Thank You Letter, Antibiotic Education, Prescription Opioid Use. Follow up: Private Physician; When: As needed; Reason: Recheck today's complaints, Re-evaluation by your physician. Problem is an ongoing problem. Symptoms have improved. rn
[2020-06-05 18:49] VITALS: TEMP 98.2
[2020-06-05 18:51] VITALS: O2SAT 99
[2020-06-05 18:54] VITALS: BP 149/94
== END 2020-06-05 18:44 | disposition home or self-care (01) ==
LOC: ER 12:22
DX: G30.9 Alzheimer's disease, unspecified (principal); F02.80 Dementia in other diseases classified elsewhere, unspecified severity, without behavioral disturbance, psychotic disturbance, mood disturbance, and anxiety; I10 Essential (primary) hypertension; E11.9 Type 2 diabetes mellitus without complications; Z88.0 Allergy status to penicillin; Z88.1 Allergy status to other antibiotic agents; Z88.5 Allergy status to narcotic agent
CPT/HCPCS: 36415; 51702; 70450; 80048; 81003; 81015; 84145; 85025; 87086; 87088; 96374; 99284

== ENCOUNTER 2020-06-21 08:08 | Emergency (ER) | payer OTHER ==
--- OUTSIDE RECORDS SUMMARY | 2020-06-21 08:12 | XMS REPORT | Continuity of Care Document ---
:1945 Author Organization [facility] t Address [address] [place] [address] Care Team Providers Name Role Phone DR [...] Facility Department ID 2019-12-28 2020-01-12 Inpatient E JSOE AGEE [facility] [id number] [address] [place] 22:44:00 17:00:00 BALJIT [facility] 2019-12-28 2019-12-28 Orders Doctor RINALDI 1.2.840.114 [id number] 00:00:00 00:00:00 Only UnassignedADALBERTO [id number] [place] [facility] [id number] [id number] 2019-12-18 2019-12-18 Orders Doctor RINALDI 1.2.840.114 [id number] 00:00:00 00:00:00 Only Unassigned, ADALBERTO [id number] [facility] [id number] [id number] [id number] 2019-12-09 2019-12-09 Orders Doctor NIMCO 1.2.840.114 [id number] 00:00:00 00:00:00 Only Unassigned, ADALBERTO [id number] [facility] [id number] [id number] [id number] 2019-11-24 2019-11-24 Orders Doctor NIMCO 1.2.840.114 [id number] 00:00:00 00:00:00 Only Unassigned, ADALBERTO [id number] [facility] [id number] [id number] [id number] 2019-10-14 2019-10-14 Orders Doctor NIMCO [place]2.840.114 [id number] 00:00:00 00:00:00 Only Unassigned, ADALBERTO [id number] [facility] [id number] [id number] [id number] 2019-09-29 2019-09-29 Orders Doctor RINALDI 1.2.840.114 [id number] 00:00:00 00:00:00 Only Unassigned, ADALBERTO [id number] [facility] [id number] [id number] [id number] 2019-08-17 2019-08-17 Orders Doctor RINALDI 1.2.840.114 [id number] 00:00:00 00:00:00 Only Unassigned, ADALBERTO [id number] [facility] [id number] [id number] [id number] 2019-07-23 2019-07-23 Orders Doctor NIMCO [place].2.840.114 [id number] 00:00:00 00:00:00 Only Unassigned, ADALBERTO [id number] [facility] [id number] [id number] [id number] 2019-06-05 2019-06-30 [facility] WILLIAM Steel 1Darrin2.840.114 [id number] 08:48:52 08:40:20 Visit [facility] [id number] CARE 4.2.7.2.686 [place] [phone] [id number] Results Test Description Test Time Test [...] the FDA and the [employer] (CAP) are more stringent than those required for this test. Therefore, the result should be interpreted with caution and close attention to other clinical and epidemiological data URINALYSIS WITH [id number] 19:20:00 Test Item Value Reference Range Interpretation [...] (test code = USPERM) /HPF NONE URINE [id number] 11:31:00 Test Item Value Reference Range Interpretation [...] ug/mL R e (test code = sxt) [id number] 01:38:00 Test Item Value Reference Range Interpretation Comments Hb A1C % (test code 5.4 % 3.8-6.4 = HBA) A1C % (test code = HbA1c (% ) A1C) Reference Range Normal <5.7 Prediabetes 5.7-6.4 Diabetic >=6.5 B12 [id number] 00:50:00 Test Item Value Reference Range Interpretation Comments VIT B12 (test code = A60) 750.0 pg/mL 180.0-914.0 [id number] 00:50:00 Test Item Value Reference Range Interpretation Comments FOLATE (test code = A75) 14.2 ng/mL 3.1-17.5 [id number] 00:22:00 Test Item Value Reference Range Interpretation Comments MAGNESIUM (test code = 48A) 2.2 mg/dL 1.8-2.4 THYROID PANEL/SCREEN (TSH)2019-12-28 22:29:00 Test Item Value Reference Range Interpretation Comments TSH (test code = A57) 0.514 uIU/mL 0.358-3.740 LIPID [id number] 22:25:00 Test Item Value Reference Range Interpretation Comments CHOLESTROL (test code = 44A) 214 mg/dL 140-200 H TRIGLYCERI (test code = 42B) 97 mg/dL <=149 HDL (test code = 83D) 63.0 mg/dL 40.0-60.0 H LDL (test code = 34B) 129 mg/dL <=99 H CHL/HDL (test code = CHR) 3.4 0.0-3.4 [id number] 22:25:00 Test Item Value Reference Range Interpretation Comments PREALBUMIN (test code = 08E) 24 mg/dL 18-38 [id number] 22:23:00 Test Item Value Reference Range Interpretation Comments FOLATE (test code = A75) 14.0 ng/mL 3.1-17.5 [id number] 22:06:00 Test Item Value Reference Range Interpretation [...] the FDA and the [employer] (CAP) are more stringent than those required for this test. Therefore, the result should be interpreted with caution and close attention to other clinical and epidemiological data [id number] 21:06:00 Test Item Value Reference Range Interpretation Comments FERRITIN (test code = A19) 55.8 ng/mL 8.0-252.0 URINALYSIS WITH [id number] 21:01:00 Test Item Value Reference Range Interpretation [...] code = USPERM) /HPF NONE C-REACTIVE PROTEIN [id number] 20:56:00 Test Item Value Reference Range Interpretation Comments CRP QUANT (test code <2.9 mg/L 0.0-2.9 = CRPQ) Method Change (test Please note the code = METHOD) change in Method and the reference range AMMONIA [id number] 20:51:00 Test Item Value Reference Range Interpretation Comments AMMONIA (test code = 54A) 23 umol/L 11-32 LDH-LACTIC [id number] 20:50:00 Test Item Value Reference Range Interpretation Comments LDH (test code = 33A) 190 IU/L 84-246 CARDIAC [id number] 20:49:00 Test Item Value Reference Range Interpretation Comments TROPONIN I (test code = A84) <0.015 ng/mL 0.000-0.045 COMPREHENSIVE METABOLIC [id number] 20:48:00 Test Item Value Reference Range Interpretation [...] (test code = 31A) 16 IU/L <=78 [id number] 20:48:00 Test Item Value Reference Range Interpretation Comments ACETAMINPH (test code = 94M) <2.0 ug/mL 10.0-30.0 L ALCOHOL BLOOD (ETOH)2019-12-28 20:45:00 Test Item Value Reference Range Interpretation Comments ETOH (test code = HALC) ETHANOL The result is to be used only for medical purposes ALCOHOL (test code = <10 mg/dL <=10 56A) PRO TIME AND [id number] 20:44:00 Test Item Value Reference Range Interpretation [...] or LMW Heparin. Order Code is ANTI-XA [id number] 20:43:00 Test Item Value Reference Range Interpretation Comments SALICYLATE (test code = 94B) <1.7 mg/dL 2.8-20.0 L DRUGS OF [id number] 20:41:00 Test Item Value Reference Range Interpretation [...]
--- NOTE | 2020-06-21 08:58 | RAD REPORT ---
EXAM DESCRIPTION: CT - Head C Spine Cap Amirah Con - 06/21/2020 8:32 am TECHNIQUE: Computed axial tomography of the head and cervical spine was obtained. Coronal and sagitt al reconstruction was performed Computed axial tomography of the chest, abdomen and pelvis was obtained. Contrast was not requested. All CT scans are performed using dose optimization technique as appropriate and may include automated exposure control or mA/KV adjustment according to patient size. CLINICAL HISTORY: Head and neck injury with chest and abdominal pain status post fall COMPARISON: 2017 FINDINGS: A right frontal scalp hematoma. An intracranial bleed is not seen. The ventricles are normal in caliber. An extra-axial fluid collection is not noted. . 2 centimeter low-density area posterior right parietal lobe. Fluid within the sinuses/mastoids is not seen. A cervical fracture is not seen. No dislocation is noted. The evaluation of mediastinum, janeth, vessels, solid organs and bowel are limited secondary to the lac k of contrast administration. A mediastinal hematoma is not noted. A pleural effusion is not seen. A lung contusion is not present. The liver,spleen, pancreas, adrenals,kidneys and bladder do not demonstrate a traumatic injury. Rectu m is mildly distended with stool Mild to moderate anterior subluxation L4 on L5. Small gallstone IMPRESSION: 1. 2 centimeter low-density area within the white matter of the posterior right frontal lobe may repr esent an infarct. 2. A cervical fracture is not visualized. 3. No acute traumatic abnormality involving the chest/abdomen/pelvis.
--- NOTE | 2020-06-21 09:19 | EDPHYS ---
Physician Documentation [facility] Name: Flori Goldman Age: 75 yrs Sex: Female : 1945 Arrival Date: 06/21/2020 Time: 08:10 Bed 4 Private MD: Geovanny Montalvo HPI: 06/21 09:08 This 75 yrs old Female presents to ER via EMS with complaints of Fall Injury. marcelo 09:08 Details of fall: The patient fell from an upright position, while standing. Onset: The marcelo symptoms/episode began/occurred just prior to arrival. Associated injuries: The patient sustained injury to the head. Severity of symptoms: At their worst the symptoms were mild, in the emergency department the symptoms are unchanged. The patient has experienced similar episodes in the past, several times. Historical: - Allergies: 08:14 Cipro; hb 08:14 fluoroquinolones; hb 08:14 PENICILLINS; hb - Home Meds: 08:14 donepezil 10 mg Oral tab 1 tab once daily [Active]; duloxetine 60 mg Oral cpDR 1 cap hb once daily [Active]; lamotrigine 200 mg Oral tab 1 tab once daily [Active]; lisinopril 10 mg Oral tab 1 tab once daily [Active]; metformin 500 mg Oral TG24 2 tabs 2 times per day [Active]; mirtazapine 30 mg oral tab [Active]; omeprazole 20 mg Oral TbEC [Active]; tramadol 50 mg Oral tab 1 tab 12 HOURS [Active]; - PMHx: 08:14 Alzheimers; Dementia; Diabetes - NIDDM; GERD; Hypertension; hb - PSHx: 08:14 Unable to obtain; hb - Immunization history:: Adult Immunizations up to date. - Social history:: Smoking status: Patient denies any tobacco usage or history of. - Immunization history: Last tetanus immunization: unknown. - Family history:: not pertinent. ROS: 09:08 Constitutional: Negative for fever, chills, and weight loss, Eyes: Negative for injury, marcelo pain, redness, and discharge, ENT: Negative for injury, pain, and discharge, Neck: Negative for injury, pain, and swelling, Cardiovascular: Negative for chest pain, palpitations, and edema, Respiratory: Negative for shortness of breath, cough, wheezing, and pleuritic chest pain, Abdomen/GI: Negative for abdominal pain, nausea, vomiting, diarrhea, and constipation, Back: Negative for injury and pain, : Negative for injury, bleeding, discharge, and swelling, MS/Extremity: Negative for injury and deformity, Skin: Negative for injury, rash, and discoloration, Psych: Negative for depression, anxiety, suicide ideation, homicidal ideation, and hallucinations, Allergy/Immunology: Negative for hives, rash, and allergies, Endocrine: Negative for neck swelling, polydipsia, polyuria, polyphagia, and marked weight changes, Hematologic/Lymphatic: Negative for swollen nodes, abnormal bleeding, and unusual bruising. 09:08 Neuro: Positive for gait disturbance, DEMENTED , FOUND DOWN AT SD, AT BASELINE, HEMATOMA RIGHT FOREHEAD. Exam: 09:08 Constitutional: This is a well developed, well nourished patient who is awake, alert, marcelo and in no acute distress. Eyes: Pupils equal round and reactive to light, extra-ocular motions intact. Lids and lashes normal. Conjunctiva and sclera are non-icteric and not injected. Cornea within normal limits. Periorbital areas with no swelling, redness, or edema. ENT: Nares patent. No nasal discharge, no septal abnormalities noted. Tympanic membranes are normal and external auditory canals are clear. Oropharynx with no redness, swelling, or masses, exudates, or evidence of obstruction, uvula midline. Mucous membranes moist. Neck: Trachea midline, no thyromegaly or masses palpated, and no cervical lymphadenopathy. Supple, full range of motion without nuchal rigidity, or vertebral point tenderness. No Meningismus. Chest/axilla: Normal chest wall appearance and motion. Nontender with no deformity. No lesions are appreciated. Cardiovascular: Regular rate and rhythm with a normal S1 and S2. No gallops, murmurs, or rubs. Normal PMI, no JVD. No pulse deficits. Respiratory: Lungs have equal breath sounds bilaterally, clear to auscultation and percussion. No rales, rhonchi or wheezes noted. No increased work of breathing, no retractions or nasal flaring. Abdomen/GI: Soft, non-tender, with normal bowel sounds. No distension or tympany. No guarding or rebound. No evidence of tenderness throughout. Back: No spinal tenderness. No costovertebral tenderness. Full range of motion. Skin: Warm, dry with normal turgor. Normal color with no rashes, no lesions, and no evidence of cellulitis. MS/ Extremity: Pulses equal, no cyanosis. Neurovascular intact. Full, normal range of motion. Psych: Awake, alert, with orientation to person, place and time. Behavior, mood, and affect are within normal limits. 09:08 Head/face: Noted is hematoma, that is moderate, of the forehead. 09:08 Neuro: Orientation: Not oriented to person, place, time, situation, Mentation: appropriate for stated age, Memory: unable to test, Cranial nerves: is grossly normal based on the patient's age, Cerebellar function: is grossly normal based on the patient's age, Gait: not tested. Vital Signs: 08:11 BP 123 / 73; Pulse 68; Resp 16; Temp 97.8; Pulse Ox 100% on R/A; Pain 2/10; hb 09:02 BP 123 / 78; Pulse 67; Resp 16; Pulse Ox 99% on R/A; Pain 1/10; hb 10:00 BP 124 / 76; Pulse 66; Resp 15; Pulse Ox 99% on R/A; hb 11:00 BP 122 / 74; Pulse 64; Resp 16; Pulse Ox 99% on R/A; hb 11:52 BP 126 / 76; Pulse 65; Resp 16; Pulse Ox 99% on R/A; hb 08:11 Sanabria-Cottrell (FACES) hb 09:02 Sanabria-Cottrell (FACES) hb Ashlee Coma Score: 08:13 Eye Response: spontaneous(4). Verbal Response: none(1). Motor Response: withdraws from hb pain(4). Total: 9. Trauma Score (Adult): 08:13 Eye Response: spontaneous(1); Verbal Response: none(0); Motor Response: withdraws from hb pain(1); Systolic BP: > 89 mm Hg(4); Respiratory Rate: 10 to 29 per min(4); Ashlee Score: 9; Trauma Score: 10 09:02 Eye Response: spontaneous(1); Verbal Response: incomprehensible(0); Motor Response: hb withdraws from pain(1); Systolic BP: > 89 mm Hg(4); Respiratory Rate: 10 to 29 per min(4); [place] Score: 10; Trauma Score: 10 10:00 Eye Response: spontaneous(1); Verbal Response: confused(1); Motor Response: withdraws hb from pain(1); Systolic BP: > 89 mm Hg(4); Respiratory Rate: 10 to 29 per min(4); [place] Score: 12; Trauma Score: 11 11:00 Eye Response: spontaneous(1); Verbal Response: confused(1); Motor Response: withdraws hb from pain(1); Systolic BP: > 89 mm Hg(4); Respiratory Rate: 10 to 29 per min(4); [place] Score: 12; Trauma Score: 11 11:52 Eye Response: spontaneous(1); Verbal Response: confused(1); Motor Response: withdraws hb from pain(1); Systolic BP: > 89 mm Hg(4); Respiratory Rate: 10 to 29 per min(4); [place] Score: 12; Trauma Score: 11 MDM: 08:16 Patient medically screened. [facility] 09:08 Differential diagnosis: closed head injury, contusion, multiple trauma, sprain, strain. marcelo Data reviewed: vital signs, nurses notes, radiologic studies, CT scan. Data interpreted: potline monitor: rate is 67 beats/min, rhythm is regular, Pulse oximetry: on room air. Counseling: I had a detailed discussion with the patient and/or guardian regarding: the historical points, exam findings, and any diagnostic results supporting the discharge/admit diagnosis, radiology results, the need for outpatient follow up, for definitive care, an regulation supervisor. 06/21 08:15 Order name: CT Traumagram (Head C Spine CAP wo con); Complete Time: 09:07 marcelo 06/21 08:15 Order name: Ice pack; Complete Time: 09:03 [facility] Administered Medications: No medications were administered Disposition: 06/21/20 09:18 Discharged to Home. Impression: Fall due to bumping against object, Superficial injury of head - RIGHT FRONTAL HEMATOMA, Dementia in other diseases classified elsewhere. - Condition is Stable. - Discharge Instructions: Dementia, Head Injury, Adult, Fall Prevention in the Home, [id number], Head Injury, Adult, [id number], Dementia, [id number]. - SBAR form, Medication Reconciliation Form, Thank You Letter, Antibiotic Education, Prescription Opioid Use form. - Follow up: Private Physician; When: 2 - 3 days; Reason: Recheck today's complaints, Continuance of care, Re-evaluation by your physician. - Problem is new. - Symptoms are unchanged. Signatures: Dispatcher [employer] EDMS Geovanny Goldman MD MD cha Smirch, Shelby, RN RN Anjelica Arredondo RN RN Corrections: (The following items were deleted from the chart) 09:18 09:18 06/21/2020 09:18 Discharged to Home. Impression: Fall due to bumping against marcelo object; Superficial injury of head - RIGHT FRONTAL HEMATOMA. Condition is Stable. Forms are Medication Reconciliation Form, Thank You Letter, Antibiotic Education, Prescription Opioid Use. Follow up: Private Physician; When: 2 - 3 days; Reason: Recheck today's complaints, Continuance of care, Re-evaluation by your physician. Problem is new. Symptoms are unchanged. [facility] 12:29 09:18 06/21/2020 09:18 Discharged to Home. Impression: Fall due to bumping against ss object; Superficial injury of head - RIGHT FRONTAL HEMATOMA; Dementia in other diseases classified elsewhere. Condition is Stable. Forms are Medication Reconciliation Form, Thank You Letter, Antibiotic Education, Prescription Opioid Use. Follow up: Private Physician; When: 2 - 3 days; Reason: Recheck today's complaints, Continuance of care, Re-evaluation by your physician. Problem is new. Symptoms are unchanged. marcelo
--- NOTE | 2020-06-21 09:19 | ER ---
Nurse's Notes [facility] Name: Flori Goldman Age: 75 yrs Sex: Female : 1945 Arrival Date: 06/21/2020 Time: 08:10 Bed 4 Private MD: Diagnosis: Fall due to bumping against object;Superficial injury of head-RIGHT FRONTAL HEMATOMA;Dementia in other diseases classified elsewhere Presentation: 06/21 08:11 Chief complaint: EMS states: Found on ground by assisted staff, contusion to right hb forehead noted. Bruising to left upper back from previous fall noted. Hx of dementia, AOx0 at baseline. Coronavirus screen: At this time, the client does not indicate any symptoms associated with coronavirus-19. Ebola Screen: No symptoms or risks identified at this time. Initial Sepsis Screen: Does the patient meet any 2 criteria? No. Patient's initial sepsis screen is negative. Does the patient have a suspected source of infection? No. Patient's initial sepsis screen is negative. Risk Assessment: Do you want to hurt yourself or someone else? Patient reports no desire to harm self or others. Onset of symptoms was June 21, 2020. 08:11 Method Of Arrival: EMS: [facility] hb 08:11 Acuity: SLADE 3 hb 08:13 Care prior to arrival: None. Mechanism of Injury: Fall unknown, unwitnessed. Trauma hb event details: Injury occurred in the [facility], Injury occurred: at home. Injury occurred: June 21, 2020. Trauma Activation: Alert Physician: ED Physician; Name: ; Notified At: ; Arrived At: Physician: General Surgeon; Name: ; Notified At: ; Arrived At: Physician: Radiology; Name: ; Notified At: ; Arrived At: Physician: Respiratory; Name: ; Notified At: ; Arrived At: Physician: Lab; Name: ; Notified At: ; Arrived At: Historical: - Allergies: 08:14 Cipro; hb 08:14 fluoroquinolones; hb 08:14 PENICILLINS; hb - Home Meds: 08:14 donepezil 10 mg Oral tab 1 tab once daily [Active]; duloxetine 60 mg Oral cpDR 1 cap hb once daily [Active]; lamotrigine 200 mg Oral tab 1 tab once daily [Active]; lisinopril 10 mg Oral tab 1 tab once daily [Active]; metformin 500 mg Oral TG24 2 tabs 2 times per day [Active]; mirtazapine 30 mg oral tab [Active]; omeprazole 20 mg Oral TbEC [Active]; tramadol 50 mg Oral tab 1 tab 12 HOURS [Active]; - PMHx: 08:14 Alzheimers; Dementia; Diabetes - NIDDM; GERD; Hypertension; hb - PSHx: 08:14 Unable to obtain; hb - Immunization history:: Adult Immunizations up to date. - Social history:: Smoking status: Patient denies any tobacco usage or history of. - Immunization history: Last tetanus immunization: unknown. - Family history:: not pertinent. Screenin:13 Abuse screen: unable to assess. Tuberculosis screening: unable to assess. hb 08:19 Nutritional screening: No deficits noted. Fall Risk Total Paige Fall Scale indicates hb High Risk Score (45 or more points). Fall prevention measures have been instituted. Side Rails Up X 2 Frequent Obs/Assessments Occuring As available patient and family educated on Fall Prevention Program and Strategies. Primary Survey: 08:14 NO uncontrolled hemorrhage observed. A: The patient is alert. Airway: patent, No hb supplemental oxygen in use on arrival. Breathing/Chest: Respiratory pattern: regular, Respiratory effort: spontaneous, Chest inspection: symmetrical rise and fall of the chest. Circulation: Skin color: pale. Disability Alert. Exposure/Environment: There is no evidence of uncontrolled external bleeding. Obvious injury(ies) are noted at this time: contusion to right forehead, bruising to left upper back and left posterior shoulder. 09:01 Reassessment Airway Airway Patent Breathing/Chest Respiratory pattern Regular hb Respiratory effort Spontaneous Unlabored Circulation Color [place] Pale Disability Alert. 10:00 Reassessment Airway Airway Patent Breathing/Chest Respiratory pattern Regular hb Respiratory effort Spontaneous Unlabored Circulation Color [place] Pale Disability Alert. 11:00 Reassessment Airway Airway Patent Breathing/Chest Respiratory pattern Regular hb Respiratory effort Spontaneous Unlabored Circulation Color [place] Pale Disability Alert. 11:51 Reassessment Airway Airway Patent Breathing/Chest Respiratory pattern Regular hb Respiratory effort Spontaneous Unlabored Circulation Color [place] Pale Disability Alert. Secondary Survey: 08:14 HEENT: Face Other contusion to right forehead. Gastrointestinal: No deficits noted. : hb No deficits noted. Musculoskeletal: Range of motion: intact in all extremities. Assessment: 08:15 General: Appears in no apparent distress. Behavior is calm. Pain: Unable to use pain hb scale. FLACC scale score is 2 out of 10. Neuro: Level of Consciousness is awake, alert, Oriented to none. Cardiovascular: Capillary refill < 3 seconds Patient's skin is warm and dry. Respiratory: Respiratory effort is even, unlabored, Respiratory pattern is regular, symmetrical. GI: No deficits noted. No signs and/or symptoms were reported involving the gastrointestinal system. : No deficits noted. No signs and/or symptoms were reported regarding the genitourinary system. EENT: No deficits noted. No signs and/or symptoms were reported regarding the EENT system. Derm: Skin is pale. Musculoskeletal: bruising noted to left posterior shoulder and left upper back, contusion to right forehead. 09:02 Reassessment: Patient appears in no apparent distress at this time. No changes from hb previously documented assessment. Patient and/or family updated on plan of care and expected duration. Pain level reassessed. 10:00 Reassessment: Patient appears in no apparent distress at this time. No changes from hb previously documented assessment. Patient and/or family updated on plan of care and expected duration. Pain level reassessed. 11:00 Reassessment: Patient appears in no apparent distress at this time. No changes from hb previously documented assessment. Patient and/or family updated on plan of care and expected duration. Pain level reassessed. 11:51 Reassessment: Patient appears in no apparent distress at this time. No changes from hb previously documented assessment. Patient and/or family updated on plan of care and expected duration. Pain level reassessed. 11:51 Reassessment: Per [place], EMS will be here for transport in 15-20 minutes. hb Vital Signs: 08:11 BP 123 / 73; Pulse 68; Resp 16; Temp 97.8; Pulse Ox 100% on R/A; Pain 2/10; hb 09:02 BP 123 / 78; Pulse 67; Resp 16; Pulse Ox 99% on R/A; Pain 1/10; hb 10:00 BP 124 / 76; Pulse 66; Resp 15; Pulse Ox 99% on R/A; hb 11:00 BP 122 / 74; Pulse 64; Resp 16; Pulse Ox 99% on R/A; hb 11:52 BP 126 / 76; Pulse 65; Resp 16; Pulse Ox 99% on R/A; hb 08:11 Sanabria-Cottrell (FACES) hb 09:02 Sanabria-Cottrell (FACES) hb [place] Coma Score: 08:13 Eye Response: spontaneous(4). Verbal Response: none(1). Motor Response: withdraws from hb pain(4). Total: 9. Trauma Score (Adult): 08:13 Eye Response: spontaneous(1); Verbal Response: none(0); Motor Response: withdraws from hb pain(1); Systolic BP: > 89 mm Hg(4); Respiratory Rate: 10 to 29 per min(4); Ashlee Score: 9; Trauma Score: 10 09:02 Eye Response: spontaneous(1); Verbal Response: incomprehensible(0); Motor Response: hb withdraws from pain(1); Systolic BP: > 89 mm Hg(4); Respiratory Rate: 10 to 29 per min(4); Ashlee Score: 10; Trauma Score: 10 10:00 Eye Response: spontaneous(1); Verbal Response: confused(1); Motor Response: withdraws hb from pain(1); Systolic BP: > 89 mm Hg(4); Respiratory Rate: 10 to 29 per min(4); [place] Score: 12; Trauma Score: 11 11:00 Eye Response: spontaneous(1); Verbal Response: confused(1); Motor Response: withdraws hb from pain(1); Systolic BP: > 89 mm Hg(4); Respiratory Rate: 10 to 29 per min(4); [place] Score: 12; Trauma Score: 11 11:52 Eye Response: spontaneous(1); Verbal Response: confused(1); Motor Response: withdraws hb from pain(1); Systolic BP: > 89 mm Hg(4); Respiratory Rate: 10 to 29 per min(4); [place] Score: 12; Trauma Score: 11 ED Course: 08:10 Patient arrived in ED. hb 08:12 Triage completed. hb 08:13 Patient has correct armband on for positive identification. Bed in low position. Call hb light in reach. Side rails up X2. 08:13 Patient maintains SpO2 saturation greater than 95% on room air. hb 08:14 Geovanny Goldman MD is Attending Physician. marcelo 08:19 Arm band placed on. hb 08:19 Thermoregulation: warm blanket given to patient. hb 08:32 CT Traumagram (Head C Spine CAP wo con) In Process Unspecified. EDMS 08:34 Anjelica Arredondo, RN is Primary Nurse. hb Administered Medications: No medications were administered Intake: 08:13 PO: 0ml; Total: 0ml. hb Output: 08:13 Urine: 0ml; Total: 0ml. hb Outcome: 09:18 Discharge ordered by . marcelo 10:49 Patient's length of stay in the Emergency Department was greater than 2 hours. awaiting hb assisted fern picker Patient's length of stay extended due to 12:29 Patient left the ED. ss Signatures: Dispatcher [employer] EDAZ Geovanny Goldman MD MD cha Smirch, Shelby, RN RN Anjelica Arredondo, RN RN hb Corrections: (The following items were deleted from the chart) 11:02 10:48 Reassessment Airway Airway Patent Breathing/Chest Respiratory pattern Regular hb Respiratory effort Spontaneous Unlabored Circulation Color [place] Pale Disability Alert hb 11:03 11:02 Reassessment: Patient appears in no apparent distress at this time. No changes hb from previously documented assessment. Patient and/or family updated on plan of care and expected duration. Pain level reassessed. hb
[2020-06-21 13:09] VITALS: TEMP 97.8
[2020-06-21 13:11] VITALS: O2SAT 99
[2020-06-21 13:15] VITALS: BP 126/76
== END 2020-06-21 12:29 | disposition home or self-care (01) ==
LOC: ER 08:08
DX: S00.83XA Contusion of other part of head, initial encounter (principal); G30.9 Alzheimer's disease, unspecified; F02.80 Dementia in other diseases classified elsewhere, unspecified severity, without behavioral disturbance, psychotic disturbance, mood disturbance, and anxiety; W18.30XA Fall on same level, unspecified, initial encounter; Y93.89 Activity, other specified; Y92.129 Unspecified place in nursing home as the place of occurrence of the external cause; Z88.0 Allergy status to penicillin; Z88.1 Allergy status to other antibiotic agents; Z88.5 Allergy status to narcotic agent; I10 Essential (primary) hypertension; E11.9 Type 2 diabetes mellitus without complications
CPT/HCPCS: 70450; 71250; 72125; 99284; G0390